=== PATIENT | male | born 1940 | race Caucasian/White ===

== ENCOUNTER 2016-06-07 13:29 | Inpatient (IN) | payer MEDICARE, OTHER ==
[~2016-06-07] VITALS: Ht 181.6 cm; Wt 81.4 kg
--- NOTE | ~2016-06-07 | DS ---
PATIENT'S NAME: DAVID LYNN [facility] AGE: 75 Y [address] ROOM: [id number] [place], [place] [address] LOCATION: GPCU ADMIT DATE: 06/07/2016 Discharge Summary DISCHARGE DATE: 06/13/2016 FAMILY PHYSICIAN: PHYSICIAN, NO ATTENDING PHYSICIAN: Travis Gorman DIAGNOSES: 1. A 75-year-old male, who slipped and fell on a loading dock landing on his right side due to snow and ice. 2. Multiple left rib fractures (7 through 11). 3. History of type 2 diabetes. 4. History of coronary artery disease. 5. Hypertension. SUMMARY: David Lynn is a 75-year-old male who was outside skipping some snow on a loading dock when he slipped and fell. He reports landing on his right side. He had no loss of consciousness. He was brought to the emergency room at [facility], where he was noted to have normal mentation. He had no abdominal pain. A CT scan of his chest and spine was performed, which revealed several rib fractures on the left side including 7 through 11 laterally and 8 and 9 fractured near the costovertebral region. The patient was evaluated by Dr. Gorman and was subsequently admitted to the progressive care unit. Activity was allowed as tolerated. PT and OT were ordered along with respiratory therapy. Diet was allowed as tolerated. Percocet and Motrin along with IV Dilaudid were ordered for pain control. On post trauma day 1, the patient had significant pain, but was breathing okay. He was not requiring any supplemental oxygen. His hemoglobin was 11.9. His chest x-ray was stable. Post trauma day 2, the Valium was added for muscle spasms. Lovenox was added for DVT prophylaxis. The patient continued with pain control along with therapies and it was decided that he was going to need swing bed prior to discharging home. Arrangements were made for swingbed acceptance in [place], [place]. DISCHARGE INSTRUCTIONS: Include regular diet. Continue with PT and OT. Accu- Cheks q.a.c. and h.s. MEDICATIONS: Continuing home medicines: 1. Norvasc 5 mg p.o. daily. 2. Lantus 31 units subcu q.a.m. 3. Cozaar 100 mg p.o. daily. 4. Lopressor 12.5 mg p.o. twice daily. 5. Hytrin 5 mg p.o. daily. 6. Potassium 198 mg p.o. daily. 7. Aspirin low-dose 81 mg p.o. daily. 8. Flomax 0.4 mg p.o. daily. 9. Beta-carotene 1 tablet p.o. daily. PATIENT'S NAME: DAVID LYNN [facility] AGE: 75 Y [address] ROOM: [address] [address] LOCATION: [facility] ADMIT DATE: 06/07/2016 Discharge Summary DISCHARGE DATE: 06/13/2016 FAMILY PHYSICIAN: PHYSICIAN, NO ATTENDING PHYSICIAN: Travis Gorman 10. B complex with vitamin C 1 tablet p.o. daily. 11. Vitamin B1 250 mg p.o. daily. 12. Vitamin D3 1000 units p.o. daily. Some of his other supplements were held. 13. Metformin 850 mg p.o. twice daily. 14. Zyrtec 10 mg p.o. daily. 15. Ditropan 5 mg p.o. twice daily. 16. The patient may continue on Mucinex 600-1200 mg p.o. q.12 hours p.r.n. congestion. 17. Albuterol 2.5 mg inhaler every 4 hours as needed. 18. Percocet 5/325 one to two every 4 hours p.r.n. pain. 19. Valium 5 mg p.o. q.8 hours as needed for muscle spasms. 20. Milk of magnesia for constipation. For specifics on day-to-day care, please refer to the hospital chart. ISABELLA ST PA-C FOR MD DARA ALEJO/marjorie /[id number] CC: Abbi Springer MD d: 06/13/16 0904 t: 06/18/16 1407, DISCHARGE SUMMARY
--- NOTE | ~2016-06-07 | ER ---
PATIENT'S NAME: DAVID LYNN [facility] AGE: 75 Y [address] ROOM: [place] [id number] LOCATION: GPCU ADMIT DATE: 06/07/2016 ER/Outpatient Report DISCHARGE DATE: FAMILY PHYSICIAN: PHYSICIAN, NO ATTENDING PHYSICIAN: Travis Gorman Time of Arrival: 1329 hours. Time of Exam: 1329 hours. CHIEF COMPLAINT: Fall. HISTORY OF PRESENT ILLNESS: The patient arrived per [facility] ambulance. The patient was on a dock area that was approximately 3 feet above the ground clearance snow when he slipped, fell, landing on his mid back against a railroad tie. Denies hitting his head. Denies any other injury. Has extreme pain on the left mid back area. States it hurts to take a deep breath, it hurts to cough. He is having spasms of the area. ALLERGIES: HE HAS NO KNOWN ALLERGIES. CURRENT MEDICATIONS: On his chart and were reviewed by me. PAST MEDICAL HISTORY: Zmc-mderqwk-cylqdjpzn diabetic, coronary artery disease, and hypertension. PAST SURGERIES: Heart stents. SOCIAL HISTORY: He lives at home with his . 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 Denies use of tobacco, alcohol, or drugs. REVIEW OF SYSTEMS: All negative other than those mentioned in the HPI. PHYSICAL EXAMINATION: VITAL SIGNS: He weighed 83.8 kg. Blood pressure is 153/80, pulse of 106, respirations 20, temperature of 98.9, and O2 saturation was 98% on room air. GENERAL: He is awake, alert, and oriented x4. Quite a bit of pain at this time. [place] Coma Scale is 15. LUNGS: Sounds are clear throughout. PATIENT'S NAME: DAVID LYNN [facility] AGE: 75 Y [address] ROOM: [address] [address] LOCATION: GPCU ADMIT DATE: 06/07/2016 ER/Outpatient Report DISCHARGE DATE: FAMILY PHYSICIAN: PHYSICIAN, NO ATTENDING PHYSICIAN: Travis Gorman HEART: Regular rate and rhythm. ABDOMEN: Soft, nondistended. Bowel sounds are present. MUSCULOSKELETAL: The patient was log-rolled and back was examined. He does have pain when palpating the left mid back area. EMERGENCY DEPARTMENT COURSE: IV saline lock was started. The patient was given fentanyl 50 mcg IV and Valium 1 mg IV. Lab work was drawn and CTs were completed. CBC is within normal limits. Chem panel is within normal limits. Glucose was 180. Serum acetone is negative. Radiologist reports that the patient has left lateral rib fractures 7, 8, 9, 10, and 11. He also has left 8 and 9 costovertebral junction fracture, has a small left pleural effusion. Dr. Gorman was contacted regarding the patient. IMPRESSION: 1. Multiple rib fractures. 2. Pleural effusion. PLAN: The patient to be admitted per Dr. Gorman for pain control. Pulmonary hygiene. The patient and his family are aware of plan. ANDREZ MATHIS APRN FOR MD ANA CABRERA/marjorie /[id number] d: 06/08/16 0013 t: 06/27/16 0702, OUTPATIENT REPORT
--- NOTE | ~2016-06-07 | CON ---
PATIENT'S NAME: DAVID LYNN [facility] AGE: 75 Y [address] ROOM: [place] [address] LOCATION: GPCU ADMIT DATE: 06/07/2016 Consultation DISCHARGE DATE: FAMILY PHYSICIAN: PHYSICIAN, NO ATTENDING PHYSICIAN: Travis Gorman CHIEF COMPLAINT: Status post fall. HISTORY OF PRESENT ILLNESS: The patient is a 75-year-old male who was outside, he had been scooping some snow, when on a loading dock slipped, he fell. Said he did not actually fall completely off the loading dock, but landed on the steps right on his ribs, had severe pain after this, no loss of consciousness. Denies any other pain anywhere else. Has had no previous history of trauma. He was brought to [facility] Emergency Room where he was seen and evaluated. He was noted to have normal mentation, described no abdominal pain, only rib and back pain. Because of this, he had a CT scan of his chest as well as spine performed. This revealed several rib fractures at ribs 7 through 11 laterally with 8 and 9 also being fractured near the costovertebral. He continues to be awake and oriented and again only complaining of left chest pain. CURRENT MEDICATIONS: Dosages are somewhat not completely clear, but does take, 1. Metformin. 2. Amlodipine. 3. Losartan. 4. Metoprolol. 5. Cetirizine. 6. Terazosin. 7. Lantus. 8. Several vitamins. CURRENT ILLNESSES: Include diabetes, coronary artery disease, and hypertension. SOCIAL HISTORY: Lives in [place]. Does farm and ranch. Nonsmoker. Denies significant alcohol use. PREVIOUS SURGERIES: Coronary stents. REVIEW OF SYSTEMS: He denies any headache or vision changes. He has no neck pain. Does have history of coronary artery disease. Denies any current chest pain. No PATIENT'S NAME: DAVID LYNN [facility] AGE: 75 Y [address] ROOM: [place] [address] LOCATION: GPCU ADMIT DATE: 06/07/2016 Consultation DISCHARGE DATE: FAMILY PHYSICIAN: PHYSICIAN, NO ATTENDING PHYSICIAN: Travis Gorman dyspnea on exertion. Had no melena, no hematochezia. No hematuria or dysuria. He does have complaints of chronic right shoulder pain. PHYSICAL EXAMINATION: VITAL SIGNS: Blood pressure 153/80, pulse 106, respiratory rate is 20, and temperature is 98.9. HEENT: Head is normocephalic, atraumatic. His eyes are anicteric. His trachea is midline. There are no midface abnormalities. NECK: Without tenderness. HEART: Regular rate and rhythm. No murmurs audible. LUNGS: Clear to auscultation bilaterally. There is no crepitus on palpation. There is tenderness on the left posterior and lateral. ABDOMEN: Soft, nontender. PELVIS: Stable. EXTREMITIES: Warm. He has palpable pedal pulses in both upper and lower extremities with normal range of motion. BACK: His back does reveal tenderness in the left mid back and spine area. No overlying hematoma. LABORATORY DATA: White blood cell count 7.7, hemoglobin 13.5. His electrolytes rule are within normal limits. ASSESSMENT: Status post fall with rib fractures 7 through 11. PLAN: At this point in time, we will provide pulmonary toilet and pain control. TRAVIS MD ZAHEER DE LA O/marjorie /[id number] d: 06/07/163 t: 06/18/16 1404, CONSULTATION REPORT
[2016-06-07 13:53] LABS: BASOPHIL # 0.1 K/uL (0.0-0.2); BASOPHIL % 0.7 %; EOSINOPHIL # 0.2 K/uL (0.0-0.5); HEMATOCRIT 39.3 % (37.0-53.0); HEMOGLOBIN 13.5 g/dL (11.0-16.0); IMMATURE GRANULOCYTE # 0.1 K/uL (0.0-0.3); LYMPHOCYTE # 1.8 K/uL (0.8-4.0); LYMPHOCYTE % 23.8 %; MCH 31.5 pg (27.0-34.0); MCHC 34.4 gm/dL (32.0-36.5); MCV 91.6 fl (83.0-98.0); MONOCYTE # 0.8 K/uL (0.0-1.0); MONOCYTE % 9.8 %; MPV 8.8 fl (9.4-12.4); NEUTROPHIL # (ANC) 4.8 K/uL (1.4-9.0); NEUTROPHIL % 62.7 %; NRBC % 0 /100WBC (0-0.00); PLATELET COUNT 265 K/uL (150-450); RBC 4.29 M/uL (3.50-5.50); RDW-CV 12.9 % (11.9-14.6); WBC 7.7 K/uL (4.0-11.0)
[2016-06-07 14:12] LABS: ALBUMIN 3.7 gm/dL (3.5-5.0); ALK PHOS 55 IU/L (33-138); ALT 24 IU/L (12-78); ANION GAP 14.1 (10.0-19.0); AST 17 IU/L (10-40); BLOOD UREA NITROGEN 20 mg/dL (6-24); CALCIUM 8.9 mg/dL (8.5-10.5); CHLORIDE 108 mMol/L (96-110); CO2 23 mMol/L (22-32); CREATININE 1.1 mg/dL (0.6-1.3); ESTIMATED GFR (MDRD EQUATION) > 60; POTASSIUM 4.1 mMol/L (3.7-5.1); SODIUM 141 mMol/L (135-145); TOTAL BILIRUBIN 0.4 mg/dL (0.0-1.5)
--- NOTE | 2016-06-07 18:59 | NUR ---
Significant Event: PATIENT SETTLED AND CONNECTED TO TELEMETRY WITH HR 110'S, SBP 160-180'S. AFEBRILE AND ON RA WITH SLIGHTLY COARSE LUNG SOUNDS TO BILATERAL LOWER LOBES. SHALLOW BREATHS D/T PLEURAL PAIN FROM RIB FX. RECEIVED TOTAL OF VALIUM X4, FENTANYL 100MCG AND 2 TABS PERCOCET IN ED BEFORE ARRIVAL TO FLOOR. PATIENT EMESIS AFTER TRANSFERRING FROM CART TO BED. ORDERS RECEIVED BY DR SAMS. PIV TO R) WRIST SL'D. Follow up: MONITOR PAIN CONTROL. RESP STATUS.
[2016-06-07] MEDS ORDERED: NORVASC10 MG PO (19:01)
[2016-06-07] MEDS ORDERED: COZAAR100 MG PO (19:02)
[2016-06-07] MEDS ORDERED: LOPRESSOR25 MG PO (19:02)
[2016-06-07] MEDS ORDERED: FLOMAX0.4 MG PO (19:03)
[2016-06-07] MEDS ORDERED: ASPIRIN LO-DOSE81 MG PO (19:03)
[2016-06-07] MEDS ORDERED: VISION VITAMIN1 EACH PO (19:04)
[2016-06-07] MEDS ORDERED: SUPER B COMPLE1 EAC1 PO (19:05)
[2016-06-07] MEDS ORDERED: VITAMIN B-1250 MG PO (19:05)
[2016-06-07] MEDS ORDERED: VITAMIN B-6200 M1 PO (19:06)
[2016-06-07] MEDS ORDERED: VITAMIN B-125000 MC1 PO (19:07)
[2016-06-07] MEDS ORDERED: SELENIUM200 MC2 PO (19:08)
[2016-06-07] MEDS ORDERED: SAW PALMETTO450 MG PO (19:09)
[2016-06-07] MEDS ORDERED: VITAMIN E1000 UNI1 PO (19:10)
[2016-06-07] MEDS ORDERED: VITAMIN D1000 UNIT PO (19:10)
[2016-06-07] MEDS ORDERED: ZYRTEC10 MG PO (19:21)
[2016-06-07] MEDS ORDERED: METFORMIN HCL850 MG PO (19:21)
[2016-06-07] MEDS ORDERED: HYTRIN UD5 MG PO (19:22)
[2016-06-07] MEDS ORDERED: LANTUS SOL100 UNIT/1 SUB-Q (19:22)
[2016-06-07] MEDS ORDERED: POTASSIUM99 M1 PO (19:25)
[2016-06-07] MEDS ORDERED: DITROPAN5 MG PO (19:26)
--- NOTE | 2016-06-07 19:31 | NUR ---
75 Y/O MALE ADMITTED FOR PLEURAL EFFUSION & MULTIPLE RIB FRACTURES. PT WAS OUTSIDE TODAY DURING THE SNOW STORM DOING FARM CHORES WHEN HE SLIPPED AND FELL ON SOME METAL. PT IS ALERT & ORIENTED X3 BUT IS TIRED. PT ALLERGIES - NKMA, BUT HAD URINARY RETENTION FROM ANESTHESIA - FENTANYL, PROPOFAL, ESMOLOL, ROCURONIUM, SUPRANE. MEDICAL & SURGICAL HISTORY - HEART CATH X2 ([facility]) WITH ONE STENT PLACED EACH TIME. PROSTATE CANCER WITH 51 RADIATION TREATMENT AND NEGATIVE CHECKS SINCE THEN. LASER EYE SURGERY BILAT EYES FOR BLEEDING IN THE BACK OF BOTH EYES. POLYPS REMOVED FROM NOSE. NOCTURIA, HYPERTENSION, SINUS DRAINAGE, SHINGLES IN PAST, PT DID SMOKE X3 YRS BACK IN THE IN THE 1949'S. REPORT GIVEN TO MALVIN HENNING ADM EDUCATION COMPLETED WITH PT
[2016-06-08 04:46] LABS: BASOPHIL % 0.4 %; EOSINOPHIL # 0.1 K/uL (0.0-0.5); EOSINOPHIL % 0.6 %; HEMATOCRIT 35.3 % (37.0-53.0); HEMOGLOBIN 11.9 g/dL (11.0-16.0); IMMATURE GRANULOCYTE % 0.4 %; LYMPHOCYTE # 1.8 K/uL (0.8-4.0); LYMPHOCYTE % 20.9 %; MCH 31.3 pg (27.0-34.0); MCHC 33.7 gm/dL (32.0-36.5); MCV 92.9 fl (83.0-98.0); MONOCYTE # 1.2 K/uL (0.0-1.0); MONOCYTE % 13.8 %; MPV 8.7 fl (9.4-12.4); NEUTROPHIL # (ANC) 5.4 K/uL (1.4-9.0); NEUTROPHIL % 63.9 %; NRBC % 0 /100WBC (0-0.00); PLATELET COUNT 235 K/uL (150-450); WBC 8.5 K/uL (4.0-11.0)
[2016-06-08 05:04] LABS: ALBUMIN 3.1 gm/dL (3.5-5.0); ALK PHOS 50 IU/L (33-138); ALT 18 IU/L (12-78); ANION GAP 9.9 (10.0-19.0); AST 14 IU/L (10-40); BLOOD UREA NITROGEN 19 mg/dL (6-24); CALCIUM 8.1 mg/dL (8.5-10.5); CHLORIDE 107 mMol/L (96-110); CO2 28 mMol/L (22-32); CREATININE 1.1 mg/dL (0.6-1.3); ESTIMATED GFR (MDRD EQUATION) > 60; POTASSIUM 3.9 mMol/L (3.7-5.1); SODIUM 141 mMol/L (135-145); TOTAL PROTEIN 6.1 g/dL (6.0-8.4)
[2016-06-08 05:07] LABS: TOTAL BILIRUBIN 0.5 mg/dL (0.0-1.5)
--- NOTE | 2016-06-08 05:44 | NUR ---
Significant Event: Patient alert and oriented x3. HR 80s-110s. All other vital signs stable. On RA. Complained of severe pain/spasms to left chest throughout shift. Scheduled Motrin and 1mg Dilaudid x3 (last at 0530) given with relief. Patient moves very little in bed. PT/OT to see. Slept through most of the shift. Had no appetite to eat last night. Calm and cooperative with all cares. Follow up: Chest XRay this morning. Up BID. Will continue to monitor and treat pain.
--- NOTE | 2016-06-08 16:14 | NUR ---
Significant Event: A/Ox3. SBP- 130-140s. P-80s. Afebrile. Room air with saturations in the mid 90s. L) AC IV saline locked. Patient ambulated x3/shift to the hallway with 1-2A/walker. Encouraged to use IS frequently. [place] 1 tab given x1 and dilaudid IVP given x2 for pleural chest/fx rib pain. Patient Voids per urinal. MOM started no BM since. Accuchecks Q6HR. Pleasant and cooperative with cares.
--- NOTE | 2016-06-09 05:19 | NUR ---
Significant Event: A/O x3. Afebrile. c/o pain spasms. Gave dilaudid 0.5mgx1. Percocet x1 and scheduled motrin. VSS on RA. SBP 110-140s. LS clear/dim. 1200 uop. Cooperative with cares. Follow up: continue to monitor per plan of care.
--- NOTE | 2016-06-09 19:09 | NUR ---
Significant Event: A/O x3, cooperative with cares. VSS, SBPs 100-170s, HRs 60-80s, oxygen at 1 liter. Has had problems with L) sided pain et spasms the majority of the day. Recieved percocet at 0745, 1 mg of dilaudid x2, last at 1444, et 5 mg of valium x2, last at 1702. Minimal relief noted; valium did allow the patient to sleep et rest without spasms but only last approximately 3-4 hours. voiding per urinal. Up to chair with walker et assist of 2. Follow up:
--- NOTE | 2016-06-10 05:08 | NUR ---
Significant Event: A/O x3. Afebrile. Spontaneous pain spasms in left side. Gave dilaudid and scheduled motrin for pain. VSS on 1L. LS clear/dim. Ambulated to bed with 2 assist. 350uop. Cooperative with cares. Follow up: Continue to monitor per plan of care.
--- NOTE | 2016-06-10 12:45 | NUR ---
Introduced self and role of care management to patient. Patient lives near [place] with his . He says he is still in a lot of pain from his ribs. Discussed discharge plans and he doesn't feel he can manage at home. Talked about skilled care and options for SNFs. His first choice would be [facility]. He does not doctor there but says it is closer to home. [facility] P[facility] [place]. Will contact [facility] and make referral. Will follow.
--- NOTE | 2016-06-10 15:31 | NUR ---
Significant Event: pt did amb with therapy to [place] today, sat in chair also. Pain meds dilaudid and motrin given, valium po this afternoon, pt has still muscle spasms. BM today. Pt here with him today. 02 weaned off. Follow up:dc planning
--- NOTE | 2016-06-10 16:44 | NUR ---
Significant Event: pt up to chair today. BMx1. 02 2liters. No c/o pain. Pt pleasant and cooperative. INR 3.0 dr made order change in coumadin. PT OT Speech worked with pt. [facility] tomorrow at 1230. Palliative saw pt today. Follow up:
--- NOTE | 2016-06-11 05:34 | NUR ---
Significant Event: Patient alert and oriented X3. SBP 130s-150s. HR 60s-80s. On room air-1L this shift. All other vital signs stable. Dilaudid x3, Percocet x1, Valium x1 given for pain to left side/back. Up with 2 assist to bathroom and to stand at bedside. Needs verbal cueing with ambulation/movement. Incontinent of urine x1. Calm and cooperative with most cares. Follow up: Will continue to monitor and treat pain.
--- NOTE | 2016-06-11 14:34 | NUR ---
Significant Event: PT A&O x3, drowsy this AM, more alert this afternoon. VSS, on room air. Ambulates with 1-2 assist. Pain controlled with valium/percocet. Voiding per urinal. IV patent to R)wrist. PT is to transfer to [facility] tomorrow. Follow up:
--- NOTE | 2016-06-11 15:15 | NUR ---
Spoke with Louann at [facility] in [place] this a.m. and referral faxed to her. Spoke with patient and this a.m. and updated them. Discussed transportation and they both feel he will be able to go via private vehicle if they have assistance getting him in and out of the car. Called Louann around 1300 to see if has questions or decision has been made. She had some questions and says she if still waiting to hear from some of their team that reviews the referrals. Call from Louann at [facility] and they can accept patient but not until tomorrow. She says Dr. Abbi Springer will be the accepting physician. Louann says Dr. Springer is out today, but one of the other physicians reviewed the info on her behalf and said she could accept patient tomorrow. She says physician to physician call can be made tomorrow to Dr. Springer at [phone]. She says patient has to be there before 1500. Talked to patient and and updated them. Talked about transfer time and told them the preference would be between 1000 and 1100 to leave here. is concerned about going to [facility] for [place] Friday and asks if can leave later. Told her the latest they can leave is 1300 as have to be at [place] prior to 1500. Patient says she can miss [facility]. then says they can probably go in the morning and she will check [facility] times in [place]. Called and updated Panda PATIÑO. Anticipate transfer to [facility] on 06/12 in the a.m via private vehicle. Will follow.
--- NOTE | 2016-06-12 05:01 | NUR ---
Significant Event: Patient very drowsy this shift. Oriented X3 for most of the shift. Disoriented to time/place with third assessment. Confused and forgetful at third assessment. Slow to reorient. Patient continually rates pain 7-10/10. Patient and request pain meds. No dilaudid given. Percocet X2 and Valium X1 given. Vital signs stable. Room air-1L per NC. Voids per urinal. Calm and cooperative with all cares. Follow up: Transfer to [facility] today. Will continue to monitor and treat pain.
--- NOTE | 2016-06-12 10:00 | NUR ---
Patient to transfer to [facility] in [place] today via private vehicle. Dr. Springer has been called and accepted patient. Orders faxed to [facility]. Nurse will call nurse to nurse report. Waiting for Dr. Gorman to round and then patient can go.
--- NOTE | 2016-06-12 10:50 | NUR ---
Alert and oriented, but very lethargic and needs multiple cues to be active and is slow to answer questions or complete tasks. NSR. SBP 150's, HR 60-80's. O2 sats > 90% on room air in the day and requires 1L/NC at night while on narcotics. Tolerating 50% of meals and PO fluids. Takes meds with cues to swallow. Voiding without problems, last BM was yesterday 06/11. Ambulates with 2 asisst, gait belt and walker, needs multiple cues to keep moving. Stops to cough and then it is painful, so he stops. Last Percocet for rib pain @ 0730, will additional prior to leaving. Last Valium was 06/11 @ 2330. Showered yesterday, refused shower today. is supportive at the bedside. Small scratch/abrasion to the right upper arm from fall at home, is dry and healing. Report over the phone to JUVENCIO Cuevas.
--- NOTE | 2016-06-12 13:15 | NUR ---
Dr. Gorman here to round and patient is too drowsy for transfer today. Called and spoke with Louann at [facility] and updated her. She says to update her in the morning. Anticipate transfer to [facility] tomorrow a.m. Will follow.
--- NOTE | 2016-06-13 05:17 | NUR ---
Significant event: Patient A/O x 3. Does not want to move much. He did walk in the hallway last night before bed and tolerated that well. Refuses to use the IS as he states this causes him to much pain. Plan is to go to swing bed this am.
--- NOTE | 2016-06-13 10:30 | NUR ---
Patient transferring to [facility] via private vehicle. Nurse called nurse to nurse report. Called Louann at and updated her.
--- NOTE | 2016-06-13 10:40 | NUR ---
Patient's vital signs were stable. Up with 1 assist with walker. Motrin given before discharge. All of morning pills given. Wheeled to front loby for transfer to [place] swingbed with at 1010.
== END 2016-06-13 13:00 | disposition swing bed (61) | DRG 184 ==
LOC: GACC 13:29 → GPCU 17:07
PROVIDERS: Family Medicine; ADMIT Surgery
DX: S22.42XA Multiple fractures of ribs, left side, initial encounter for closed fracture (principal); K56.7 Ileus, unspecified; E11.9 Type 2 diabetes mellitus without complications; W00.2XXA Other fall from one level to another due to ice and snow, initial encounter; I10 Essential (primary) hypertension; I25.10 Atherosclerotic heart disease of native coronary artery without angina pectoris; Z95.5 Presence of coronary angioplasty implant and graft; M25.511 Pain in right shoulder; Z79.82 Long term (current) use of aspirin; Z79.4 Long term (current) use of insulin; K59.00 Constipation, unspecified; T40.605A Adverse effect of unspecified narcotics, initial encounter; M62.838 Other muscle spasm
CPT/HCPCS: J1170; J1650; J3010; J3360